=== PATIENT | female | born 1950 | race Caucasian/White ===

== ENCOUNTER 2017-02-05 17:43 | Observation (INO) | payer MEDICARE, OTHER ==
[~2017-02-05] VITALS: Ht 157.5 cm; Wt 57.0 kg
[~2017-02-05 17:43] MED LIST: ASCORBIC ACID500 MG PO; CEFDINIR300 MG PO; CELEXA40 MG PO; COLACE100 MG PO; COREG6.25 MG PO; CRESTOR40 MG PO; ELAVIL25 MG PO; EVISTA60 MG PO; FERROUS SULFAT325 MG PO; FISH OIL 1,0001 EACH PO; HYDROCODON-ACE1 EAC6 PO; ISOSORBIDE MONO30 MG PO; JANUMET 50-1,01 EACH PO; LASIX40 MG PO; LEVAQUIN250 MG PO; LIPITOR10 MG PO; MAGNESIUM OXID400 MG PO; MYSOLINE50 MG PO; NEURONTIN400 MG PO; NEURONTIN600 MG PO; NEXIUM40 MG PO; NICODERM 21MG PA1 EA TD; NITROGLYCERIN0.4 MG SL; PLAVIX75 MG PO; POTASSIUM CHLO20 ME1 PO; RANEXA1000 MG PO; RESTORIL30 MG PO; SINGULAIR10 MG PO; TYLENOL325 M1 PO; ULTRAM50 MG PO; VESICARE5 MG PO; VISTARIL25 MG PO; ZESTRIL2.5 MG PO; ZITHROMAX250 MG PO
[2017-02-05 18:20] LABS: BASO % 0.2 % (0.1-1.2); EOS # 0.1 10_X3_uL (0.0-0.4); EOS % 1.9 % (0.7-5.8); GRAN # 3.8 10_X3_uL (1.6-6.1); GRAN % 60.3 % (34.0-71.1); HEMATOCRIT 38.4 % (34-45); HEMOGLOBIN 12.9 g/dL (11.2-15.7); LYMPH # 1.8 10_X3_uL (1.2-3.7); LYMPH % 28.8 % (19.3-51.7); MEAN CORPUSCULAR HEMOGLOBIN 33.9 pg (27.0-33.0); MEAN CORPUSCULAR HGB CONC 33.6 g/dL (32.0-36.0); MEAN CORPUSCULAR VOLUME 101.1 fL (79-95); MONO # 0.6 10_X3_uL (0.2-0.9); MONO % 8.8 % (4.7-12.5); PLATELET COUNT 218 x10_3/uL (182-369); WHITE BLOOD COUNT 6.3 x10_3/uL (4.0-10.0)
[2017-02-05 18:35] LABS: TROP-I < 0.30 NG/ML (0.00-0.30)
[2017-02-05 18:37] LABS: ALBUMIN 3.9 gm/dL (3.4-5.0); ALKALINE PHOSPHATASE 73 U/L (50-136); ALT/SGPT 16 U/L (3.5-33.9); AST/SGOT 19 U/L (7.04-26.96); BILIRUBIN,TOTAL < 0.15 mg/dL (0.0-1.0); BLOOD UREA NITROGEN 21 mg/dL (7-18); CALCIUM 9.4 mg/dL (8.7-10.7); CARBON DIOXIDE 24 mmol/L (21-32); CREATININE 0.6 mg/dL (0.6-1.3); GLUCOSE,RANDOM 105 mg/dL (70-99); POTASSIUM 4.4 mmol/L (3.5-5.1); SODIUM 137 mmol/L (136-145); TOTAL PROTEIN 7.7 gm/dL (6.4-8.2)
[2017-02-05 18:43] LABS: THYROID STIMULATING HORMONE 1.12 uIU/mL (0.34-4.82)
[2017-02-06 06:39] LABS: HEMATOCRIT 33.7 % (34-45); HEMOGLOBIN 11.2 g/dL (11.2-15.7); MEAN CORPUSCULAR HEMOGLOBIN 33.9 pg (27.0-33.0); MEAN CORPUSCULAR HGB CONC 33.2 g/dL (32.0-36.0); MEAN CORPUSCULAR VOLUME 102.1 fL (79-95); MEAN PLATELET VOLUME 9.6 fl (7.5-11.5); RED BLOOD COUNT 3.3 x10_6/uL (3.9-5.2); WHITE BLOOD COUNT 4.4 x10_3/uL (4.0-10.0)
[2017-02-06 07:00] LABS: ALBUMIN 3.4 gm/dL (3.4-5.0); ALKALINE PHOSPHATASE 61 U/L (50-136); ALT/SGPT 13 U/L (3.5-33.9); AST/SGOT 15 U/L (7.04-26.96); BILIRUBIN,TOTAL 0.18 mg/dL (0.0-1.0); BLOOD UREA NITROGEN 17 mg/dL (7-18); CALCIUM 8.6 mg/dL (8.7-10.7); CARBON DIOXIDE 25 mmol/L (21-32); CREATININE < 0.5 mg/dL (0.6-1.3); GLUCOSE,RANDOM 96 mg/dL (70-99); POTASSIUM 4.3 mmol/L (3.5-5.1); SODIUM 142 mmol/L (136-145); TOTAL PROTEIN 6.7 gm/dL (6.4-8.2)
[2017-02-07 07:35] LABS: HEMATOCRIT 36.1 % (34-45); HEMOGLOBIN 11.9 g/dL (11.2-15.7); MEAN CORPUSCULAR HEMOGLOBIN 33.4 pg (27.0-33.0); MEAN CORPUSCULAR VOLUME 101.4 fL (79-95); MEAN PLATELET VOLUME 9.8 fl (7.5-11.5); RED BLOOD COUNT 3.56 x10_6/uL (3.9-5.2); RED CELL DISTRIBUTION WIDTH 15.4 % (11.7-14.4); WHITE BLOOD COUNT 3.7 x10_3/uL (4.0-10.0)
[2017-02-07 07:52] LABS: BLOOD UREA NITROGEN 13 mg/dL (7-18); CALCIUM 9.1 mg/dL (8.7-10.7); CARBON DIOXIDE 25 mmol/L (21-32); CREATININE < 0.5 mg/dL (0.6-1.3); GLUCOSE,RANDOM 95 mg/dL (70-99); POTASSIUM 4.2 mmol/L (3.5-5.1); SODIUM 137 mmol/L (136-145)
== END 2017-02-07 14:30 | disposition home or self-care (01) ==
LOC: ER 17:43 → MS 19:59
PROVIDERS: General Practice; ADMIT Internal Medicine
DX: R00.2 Palpitations (principal); R00.0 Tachycardia, unspecified; E83.42 Hypomagnesemia; I95.9 Hypotension, unspecified; F32.9 Major depressive disorder, single episode, unspecified; J30.9 Allergic rhinitis, unspecified; I25.10 Atherosclerotic heart disease of native coronary artery without angina pectoris; I10 Essential (primary) hypertension; J44.9 Chronic obstructive pulmonary disease, unspecified; E11.9 Type 2 diabetes mellitus without complications; Z86.73 Personal history of transient ischemic attack (TIA), and cerebral infarction without residual deficits; R42 Dizziness and giddiness; R53.1 Weakness; Z79.02 Long term (current) use of antithrombotics/antiplatelets; Z79.899 Other long term (current) drug therapy; Z79.891 Long term (current) use of opiate analgesic; Z88.5 Allergy status to narcotic agent; Z88.2 Allergy status to sulfonamides; Z88.8 Allergy status to other drugs, medicaments and biological substances; Z90.710 Acquired absence of both cervix and uterus; Z95.1 Presence of aortocoronary bypass graft; Z95.5 Presence of coronary angioplasty implant and graft; F17.210 Nicotine dependence, cigarettes, uncomplicated
CPT/HCPCS: 36415; 71010; 80048; 80053; 80061; 82962; 83036; 83735; 84443; 85025; 93005; 93041; 93306; 96365; 96374; 96375; 99284; 99285-25; G0378; J7040